=== PATIENT | female | born 1965 | race Caucasian/White ===

== ENCOUNTER 2017-05-03 16:24 | Emergency (ER) | payer OTHER ==
[~2017-05-03] VITALS: Ht 157.5 cm; Wt 60.0 kg
--- NOTE | 2017-05-03 16:50 | PD ---
HPI Chief Complaint: Eye Problems/Injury Time Seen by Provider: 16:36 Travel History International Travel<30 days: No Contact w/Intl Traveler<30days: No Traveled to known affect area: No History of Present Illness HPI 51-year-old female presents the emergency department with dilated right pupil, and mild blurred vision. Patient states she was weed whacking her yard earlier when she felt the piece of debris hit her in the right eye. She has no pain but noticed that her right eye seemed somewhat blurry. She went to see her who noticed that her pupil was dilated only on the right side. Patient has no headache, or other neurological symptoms. When asked what type of plant the patient was working around it was found to be a joseph trumpet. This is known to have a anticholinergic effect. Patient denies any other symptoms. She has no known drug allergies. [facility] Social History Alcohol Use: Yes Tobacco Use: No Substance Use: No Allergies-Medications (Allergen,Severity, Reaction): Coded Allergies: No Known Allergies (Unverified , 05/03/17) Review of Systems Except as stated in HPI: all other systems reviewed are Neg General / Constitutional: No: Fever Eyes: Positive: Blurred Vision (see history of present illness), Photophobia, No: Diploplia, Drainage, Redness, Foreign Body Sensation, Pain, Tearing, Blind Spots, Visual changes, Blindness HENT: No: Headaches, Vertigo, Lightheadedness Cardiovascular: No: Chest Pain or Discomfort Respiratory: No: Shortness of Breath Gastrointestinal: No: Abdominal Pain Genitourinary: No: Dysuria Musculoskeletal: No: Pain Skin: No Rash Neurologic: No: Weakness Psychiatric: No: Depression Endocrine: No: Polydipsia Hematologic/Lymphatic: No: Easy Bruising Physical Exam Narrative GENERAL: Patient appears no acute distress. SKIN: Warm and dry. Normal color. Normal turgor. HEAD: Atraumatic. Normocephalic. EYES: Right pupil is obviously dilated measuring a full Centimeter across and is nonreactive. Left pupil is normal and reactive. No scleral icterus. No injection or drainage. ENT: No nasal bleeding or discharge. Mucous membranes pink and moist. Pharynx is clear. Airway is patent. NECK: Trachea midline. Supple. CARDIOVASCULAR: Regular rate and rhythm. RESPIRATORY: No accessory muscle use. Clear to auscultation. Breath sounds equal bilaterally. GASTROINTESTINAL: Abdomen soft, non-tender, nondistended. Hepatic and splenic margins not palpable. MUSCULOSKELETAL: Extremities without clubbing, cyanosis, or edema. No obvious deformities. NEUROLOGICAL: Awake and alert. No obvious cranial nerve deficits. Motor grossly within normal limits. Five out of 5 muscle strength in the arms and legs. Normal speech. PSYCHIATRIC: Appropriate mood and affect; insight and judgment normal. MDM Medical Decision Making Medical Screen Exam Complete: Yes Emergency Medical Condition: Yes Differential Diagnosis Anticholinergic exposure to the right eye. Exposure to plant material. Dilated pupil. Narrative Course Patient is seen and found to be medically stable. Patient discussed with Dr. John. Information regarding various poisonous plants and anticholinergics given to the patient. Reassurance is given the patient that this is a temporary condition but may last several days or more. Patient is to follow-up as needed. Diagnosis Primary Impression: Accidental poisoning by anticholinergics Qualified Codes: T44.3X1A - Poisoning by other parasympatholytics [ anticholinergics and antimuscarinics] and spasmolytics, accidental ( unintentional), initial encounter Referrals: Primary Care Physician Patient Instructions: General Instructions Additional Instructions: Information regarding various poisonous plants and anticholinergics given to the patient. Reassurance is given the patient that this is a temporary condition but may last several days or more. Patient is to follow-up as needed. Disposition: 01 DISCHARGE HOME Condition: Stable Mikael Bravo May 03, 2017 16:50
--- NOTE | 2017-05-03 17:05 | PD ---
MDM Supervised Visit with GEOFF: Yes Narrative Course The history, exam, and medical decision-making in the associated mid-level provider note were completed with my assistance. I reviewed and agree with the findings presented. I attest that I had a [id number] encounter with the patient on the same day, and personally performed and documented my assessment and findings in the medical record. *My assessment and Findings: 51 year-old woman who was weed whacking and apparently exposed to belladonna to her eye. She has 1 large pupil. There is no injection or erythema. Is no evidence of irritation. Is is likely anticholinergic effects the eye. Patient was counseled. Recommend outpatient follow-up. Diagnosis Primary Impression: Accidental poisoning by anticholinergics Qualified Codes: T44.3X1A - Poisoning by other parasympatholytics [ anticholinergics and antimuscarinics] and spasmolytics, accidental ( unintentional), initial encounter Referrals: Primary Care Physician Patient Instructions: General Instructions Additional Instruction: Information regarding various poisonous plants and anticholinergics given to the patient. Reassurance is given the patient that this is a temporary condition but may last several days or more. Patient is to follow-up as needed. Disposition: 01 DISCHARGE HOME Condition: Stable Ivan John MD May 03, 2017 17:05
[2017-05-03 17:20] VITALS: BP 184/98; PULSE 89; RESP 17; TEMP 98.2; O2SAT 99
[2017-05-03] MEDS ORDERED: LOSA50TA PO (17:27)
[2017-05-03 17:28] VITALS: BP 166/91; PULSE 77; RESP 18; O2SAT 98
== END 2017-05-03 17:33 | disposition home or self-care (01) ==
LOC: NEPC 16:24
DX: T44.3X1A Poisoning by other parasympatholytics [anticholinergics and antimuscarinics] and spasmolytics, accidental (unintentional), initial encounter (principal)
CPT/HCPCS: 99282